=== PATIENT | male | born 1970 | race Caucasian/White ===

== ENCOUNTER 2021-11-16 15:32 | Inpatient (IN) | payer OTHER ==
[~2021-11-16] VITALS: Ht 167.6 cm; Wt 94.8 kg
[2021-11-16 17:49] LABS: EOSINOPHILS % 3.2 % (0.0-5.0); LYMPHOCYTES % 10.2 % (20.0-50.0); MEAN CORPUSCULAR HEMOGLOBIN 25.5 pg (28.0-32.0); MEAN CORPUSCULAR VOLUME 80.2 fL (80.0-94.0); MEAN PLATELET VOLUME 8.4 fl (7.4-10.4); NEUTROPHILS % 79.6 % (40.0-76.0); PLATELET 205 x1000/uL (130-400); RED BLOOD CELL COUNT 2.52 mill/uL (4.7-6.1); RED CELL DISTRIBUTION WIDTH 18.6 % (11.6-14.6)
[2021-11-16 17:57] LABS: HEMATOCRIT. 20.2 % (42.0-52.0); HEMOGLOBIN. 6.4 g/dL (14.0-18.0)
[2021-11-16 18:00] LABS: CHLORIDE 111 mEq/L (98-107)
[2021-11-16] MEDS ORDERED: FUROSEMIDE 40MG/4ML VIAL IVP NR (19:20)
[2021-11-16] MEDS: LORAZEPAM 1MG TABLET PO NR (22:31)
[2021-11-17] MEDS: ZOLPIDEM TARTRATE 5MG TABLET PO SCH ×2 (00:28→21:02)
[2021-11-17 00:47] VITALS: BP 89/47
[2021-11-17] MEDS ORDERED: APIX5TAB MT (03:55)
[2021-11-17 04:00] VITALS: BP 95/58
[2021-11-17] MEDS: LORAZEPAM 1MG TABLET PO NR (04:09)
[2021-11-17] MEDS ORDERED: PANTOPRAZOLE 40MG DR TABLET PO SCH (07:20)
[2021-11-17 07:52] LABS: BASOPHILS % 1.3 % (0.0-2.0); EOSINOPHILS % 3.7 % (0.0-5.0); LYMPHOCYTES % 11.7 % (20.0-50.0); MEAN CORPUSCULAR HEMOGLOBIN 25.6 pg (28.0-32.0); MEAN PLATELET VOLUME 8.7 fl (7.4-10.4); MONOCYTES % 7.8 % (2.0-8.0); NEUTROPHILS % 75.5 % (40.0-76.0); PLATELET 165 x1000/uL (130-400); RED BLOOD CELL COUNT 2.25 mill/uL (4.7-6.1); RED CELL DISTRIBUTION WIDTH 18.2 % (11.6-14.6)
[2021-11-17 08:00] VITALS: BP 107/54
[2021-11-17 08:00] LABS: HEMOGLOBIN. 5.8 g/dL (14.0-18.0)
[2021-11-17] MEDS: IRON SUCROSE COMPLEX 100 MG/5 ML ML IV SCH (09:50)
[2021-11-17] MEDS: FUROSEMIDE 40MG/4ML VIAL IVP SCH ×2 (09:50→18:42)
[2021-11-17 12:00] VITALS: BP 112/58
[2021-11-17 16:00] VITALS: BP 110/59
[2021-11-17 18:33] LABS: INR 1.3; PROTHROMBIN TIME 13.5 sec (9.6-11.0)
[2021-11-17] MEDS: PANTOPRAZOLE SODIUM 40 MG/VIAL IV SCH (18:42)
[2021-11-17 18:48] LABS: TOTAL IRON BINDING CAPACITY 319 ug/dL (250-450)
[2021-11-17 19:16] LABS: FOLIC ACID (FOLATE) SERUM 8.7 ng/mL (>5.38)
[2021-11-17 20:00] VITALS: BP 98/49
[2021-11-18] VITALS (10 sets, daily range): BP systolic 95–118; BP diastolic 56–76
[2021-11-18] MEDS: PANTOPRAZOLE SODIUM 40 MG/VIAL IV SCH ×2 (05:00→17:35)
[2021-11-18] MEDS: IRON SUCROSE COMPLEX 100 MG/5 ML ML IV SCH (09:00)
[2021-11-18] MEDS: FUROSEMIDE 40MG/4ML VIAL IVP SCH ×2 (09:00→17:35)
[2021-11-18 11:56] LABS: BASOPHILS % 1.1 % (0.0-2.0); EOSINOPHILS % 4.6 % (0.0-5.0); HEMATOCRIT. 28.1 % (42.0-52.0); HEMOGLOBIN. 9.2 g/dL (14.0-18.0); LYMPHOCYTES % 10.1 % (20.0-50.0); MEAN CORPUSCULAR HEMOGLOBIN 26.1 pg (28.0-32.0); MEAN CORPUSCULAR VOLUME 79.9 fL (80.0-94.0); MEAN PLATELET VOLUME 9.1 fl (7.4-10.4); NEUTROPHILS % 77.2 % (40.0-76.0); PLATELET 186 x1000/uL (130-400); RED BLOOD CELL COUNT 3.51 mill/uL (4.7-6.1)
[2021-11-18 13:24] LABS: INR 1.3; PROTHROMBIN TIME 13.8 sec (9.6-11.0)
[2021-11-18] MEDS: SODIUM CHLORIDE 0.9% 1,000 ML IV SCH (17:00)
[2021-11-18] MEDS: ZOLPIDEM TARTRATE 5MG TABLET PO SCH (21:52)
[2021-11-19] VITALS (11 sets, daily range): BP systolic 97–132; BP diastolic 48–66
[2021-11-19] MEDS: PANTOPRAZOLE SODIUM 40 MG/VIAL IV SCH ×2 (05:11→17:21)
[2021-11-19] MEDS: FUROSEMIDE 40MG/4ML VIAL IVP SCH ×2 (07:10→17:21)
[2021-11-19] MEDS: IRON SUCROSE COMPLEX 100 MG/5 ML ML IV SCH (08:50)
[2021-11-19 10:08] LABS: BASOPHILS % 1.3 % (0.0-2.0); EOSINOPHILS % 5.2 % (0.0-5.0); HEMATOCRIT. 28.5 % (42.0-52.0); HEMOGLOBIN. 9.3 g/dL (14.0-18.0); LYMPHOCYTES % 12.8 % (20.0-50.0); MEAN CORPUSCULAR VOLUME 79.3 fL (80.0-94.0); MEAN PLATELET VOLUME 8.2 fl (7.4-10.4); MONOCYTES % 8.7 % (2.0-8.0); PLATELET 145 x1000/uL (130-400); RED BLOOD CELL COUNT 3.59 mill/uL (4.7-6.1); RED CELL DISTRIBUTION WIDTH 17.5 % (11.6-14.6)
[2021-11-19] MEDS ORDERED: CEFAZOLIN 1000MG PREMIX 50 ML IV ONE (10:50)
[2021-11-19] MEDS ORDERED: CEFAZOLIN 1000MG PREMIX 50 ML IV NR (11:00)
[2021-11-19] MEDS ORDERED: POLYETHYLENE GLYCOL-ELECTROLYTE 4000ML PO NR (12:00)
[2021-11-19] MEDS: SODIUM CHLORIDE 0.9% 1,000 ML IV SCH (12:17)
[2021-11-19] MEDS ORDERED: LIDOCAINE HCL/PF 1% 10 MG/ML 5ML VIAL ONE ×2 (12:52→12:53)
[2021-11-19] MEDS ORDERED: IOHEXOL-300 100 ML BOTTLE ONE (12:54)
[2021-11-19] MEDS: METOCLOPRAMIDE HCL 5MG TABLET PO SCH ×3 (14:51→21:42)
[2021-11-19 19:11] LABS: CLARITY URINE CLEAR (CLEAR); COLOR URINE YELLOW (YELLOW); KETONES URINE NEGATIVE (NEGATIVE); LEUKOCYTE ESTERASE URINE NEGATIVE (NEGATIVE); NITRITE URINE NEGATIVE (NEGATIVE); OCCULT BLOOD URINE NEGATIVE (NEGATIVE); PH URINE 5.5 (4.5-8.0); PROTEIN URINE NEGATIVE (NEGATIVE); SPECIFIC GRAVITY URINE 1.022 (1.005-1.030); UROBILINOGEN URINE 0.2 E.U./dL (0.2-1.0)
[2021-11-19] MEDS: ZOLPIDEM TARTRATE 5MG TABLET PO SCH (21:42)
[2021-11-19] MEDS: DIPHENHYDRAMINE 50MG CAPSULE PO PRN (23:54)
[2021-11-20 03:34] VITALS: BP 110/52
[2021-11-20] MEDS: PANTOPRAZOLE SODIUM 40 MG/VIAL IV SCH ×2 (04:41→18:13)
[2021-11-20] MEDS: METOCLOPRAMIDE HCL 5MG TABLET PO SCH ×3 (06:30→18:13)
[2021-11-20] MEDS: FUROSEMIDE 40MG/4ML VIAL IVP SCH ×2 (06:30→18:13)
[2021-11-20 06:35] LABS: INR 1.3; PROTHROMBIN TIME 13.6 sec (9.6-11.0)
[2021-11-20 06:37] LABS: BASOPHILS % 1.6 % (0.0-2.0); EOSINOPHILS % 4.5 % (0.0-5.0); HEMOGLOBIN. 8.9 g/dL (14.0-18.0); LYMPHOCYTES % 16.2 % (20.0-50.0); MEAN CORPUSCULAR VOLUME 79.2 fL (80.0-94.0); MEAN PLATELET VOLUME 8.5 fl (7.4-10.4); MONOCYTES % 11.9 % (2.0-8.0); NEUTROPHILS % 65.8 % (40.0-76.0); PLATELET 101 x1000/uL (130-400); RED BLOOD CELL COUNT 3.28 mill/uL (4.7-6.1); RED CELL DISTRIBUTION WIDTH 17.8 % (11.6-14.6)
[2021-11-20 08:00] VITALS: BP 91/41
[2021-11-20] MEDS: SODIUM CHLORIDE 0.9% 1,000 ML IV SCH (10:25)
[2021-11-20 12:00] VITALS: BP 124/62
[2021-11-20 13:06] LABS: A/G RATIO 0.9 (0.7-1.7); ALBUMIN 3.6 g/dL (2.9-4.4); ALPHA-1-GLOBULIN 0.4 g/dL (0.0-0.4); ALPHA-2-GLOBULIN 0.9 g/dL (0.4-1.0); BETA GLOBULIN 1.2 g/dL (0.7-1.3); GAMMA GLOBULINS 1.2 g/dL (0.4-1.8); GLOBULIN TOTAL 3.8 g/dL (2.2-3.9); M-SPIKE Not Observed g/dL (Not Observed); TOTAL PROTEIN SERUM 7.4 g/dL (6.0-8.5)
[2021-11-20 16:00] VITALS: BP 113/59
[2021-11-20] MEDS ORDERED: PROPOFOL 200MG/20ML VIAL IV ONE ×2 (16:06→16:26)
[2021-11-20] MEDS ORDERED: MEPERIDINE HCL/PF 25MG/ML CPJ IV PRN (17:00)
[2021-11-20] MEDS ORDERED: ONDANSETRON HCL 4MG/2ML INJ IV PRN (17:00)
[2021-11-20 20:00] VITALS: BP 112/60
[2021-11-20] MEDS: ZOLPIDEM TARTRATE 5MG TABLET PO SCH (20:35)
[2021-11-21] VITALS: BP 96/52
[2021-11-21 04:00] VITALS: BP 113/77
[2021-11-21] MEDS: DIPHENHYDRAMINE 50MG CAPSULE PO PRN (04:26)
[2021-11-21] MEDS: PANTOPRAZOLE SODIUM 40 MG/VIAL IV SCH (04:27)
[2021-11-21] MEDS: FUROSEMIDE 40MG/4ML VIAL IVP SCH (06:26)
[2021-11-21 08:00] VITALS: BP 108/67
[2021-11-23 08:09] LABS: ANTI-NUCLEAR ANTIBODIES DIRECT Positive (Negative)
== END 2021-11-21 11:25 | disposition left against medical advice (07) | DRG 241 ==
LOC: ER 15:32 → 6WST 20:53 → EDBEDREQ 21:42 → EDBEDREQTM 21:42 → ENRESERV 22:41
PROVIDERS: ADMIT Internal Medicine; ATTEND Internal Medicine
PROC: 30233N1 Transfusion of Nonautologous Red Blood Cells into Peripheral Vein, Percutaneous Approach (ICD-10-PCS; 2021-11-18)
PROC: 06H033Z Insertion of Infusion Device into Inferior Vena Cava, Percutaneous Approach (ICD-10-PCS; 2021-11-19)
PROC: 0DB78ZX Excision of Stomach, Pylorus, Via Natural or Artificial Opening Endoscopic, Diagnostic (ICD-10-PCS; principal; 2021-11-20)
PROC: 0DJD8ZZ Inspection of Lower Intestinal Tract, Via Natural or Artificial Opening Endoscopic (ICD-10-PCS; 2021-11-20)
PROC: 06H03DZ Insertion of Intraluminal Device into Inferior Vena Cava, Percutaneous Approach (ICD-10-PCS; 2021-11-20)
DX: K29.71 Gastritis, unspecified, with bleeding (principal); I26.99 Other pulmonary embolism without acute cor pulmonale; I50.43 Acute on chronic combined systolic (congestive) and diastolic (congestive) heart failure; N17.9 Acute kidney failure, unspecified; E44.1 Mild protein-calorie malnutrition; I82.432 Acute embolism and thrombosis of left popliteal vein; I82.412 Acute embolism and thrombosis of left femoral vein; J90 Pleural effusion, not elsewhere classified; E87.8 Other disorders of electrolyte and fluid balance, not elsewhere classified; I13.0 Hypertensive heart and chronic kidney disease with heart failure and stage 1 through stage 4 chronic kidney disease, or unspecified chronic kidney disease; K64.8 Other hemorrhoids; E66.9 Obesity, unspecified; D64.9 Anemia, unspecified; E78.5 Hyperlipidemia, unspecified; N18.9 Chronic kidney disease, unspecified; R16.2 Hepatomegaly with splenomegaly, not elsewhere classified; Z20.822 Contact with and (suspected) exposure to COVID-19; F17.210 Nicotine dependence, cigarettes, uncomplicated; Z68.33 Body mass index [BMI] 33.0-33.9, adult; Z79.01 Long term (current) use of anticoagulants
CPT/HCPCS: 36415; 37191; 71045; 76700; 78582; 80048; 80053; 81003; 82550; 82607; 82728; 82746; 83540; 83550; 83880; 84155; 84165; 84484; 85025; 85044; 85379; 85384; 86038; 86160; 86850; 86870; 86900; 86920; 86945; 87426; 88305; 88312; 88313; 93005; 93306; 93970; 99291; A9558; C1769; C1880; C9113; J0690; J1940; J2704; J3490; J7030; J8597; P9016; Q0163; Q9967

== ENCOUNTER 2022-01-26 13:35 | Inpatient (IN) | payer MEDICAID, OTHER ==
[~2022-01-26] VITALS: Ht 320 cm; Wt 74.8 kg
[~2022-01-26 13:35] MED LIST: APIX5TAB MT
[2022-01-26] MEDS ORDERED: ALBUTEROL 6.7GM HFA INHALER ORI ONE (16:30)
[2022-01-26 17:15] LABS: EOSINOPHILS % 1.5 % (0.0-5.0); LYMPHOCYTES % 8.6 % (20.0-50.0); MEAN CORPUSCULAR VOLUME 81.5 fL (80.0-94.0); MEAN PLATELET VOLUME 8.8 fl (7.4-10.4); MONOCYTES % 6.1 % (2.0-8.0); NEUTROPHILS % 82.8 % (40.0-76.0); PLATELET 151 x1000/uL (130-400); RED BLOOD CELL COUNT 2.67 mill/uL (4.7-6.1); RED CELL DISTRIBUTION WIDTH 18.7 % (11.6-14.6)
[2022-01-26 17:22] LABS: HEMATOCRIT. 21.8 % (42.0-52.0)
[2022-01-26 17:24] LABS: CHLORIDE 111 mEq/L (98-107)
[2022-01-26 17:38] LABS: ETHANOL BLOOD < 10 mg/dL
[2022-01-26] MEDS ORDERED: FUROSEMIDE 40MG/4ML VIAL IVP NR (18:15)
[2022-01-26 19:20] LABS: TOTAL IRON BINDING CAPACITY 288 ug/dL (250-450)
[2022-01-26] MEDS ORDERED: IPRATROPIUM/ALBUTEROL 0.5-3(2.5)MG/3ML NEB HHN PRN (20:00)
[2022-01-26] MEDS ORDERED: CEFTRIAXONE 1 G PREMIX 50 ML IV SCH (20:00)
[2022-01-26] MEDS ORDERED: DIPHENHYDRAMINE 50MG/ML VIAL IV PRN (20:00)
[2022-01-26] MEDS ORDERED: AZITHROMYCIN 500 MG in DEXT 5% WATER 250 ML IV SCH (20:00)
[2022-01-26] MEDS ORDERED: ACETAMINOPHEN 325MG TABLET PO PRN (20:00)
[2022-01-26] MEDS ORDERED: CLONIDINE 0.1MG TABLET PO PRN (20:00)
[2022-01-26] MEDS ORDERED: ONDANSETRON HCL 4MG/2ML INJ IV PRN (20:00)
[2022-01-26 20:17] LABS: *AMPHETAMINES SCREEN URINE NEGATIVE (NEGATIVE); *BARBITURATES SCREEN URINE NEGATIVE (NEGATIVE); *BENZODIAZEPINES SCREEN URINE NEGATIVE (NEGATIVE); *COCAINE SCREEN URINE NEGATIVE (NEGATIVE); CANNABINOID URINE SCREEN NEGATIVE (NEGATIVE); METHADONE URINE SCREEN NEGATIVE (NEGATIVE); OPIATES URINE SCREEN NEGATIVE (NEGATIVE); PHENCYCLIDINE URINE SCREEN NEGATIVE (NEGATIVE)
[2022-01-26 20:44] LABS: FOLIC ACID (FOLATE) SERUM 8.5 ng/mL (>5.38)
[2022-01-27 02:19] VITALS: BP 104/49
[2022-01-27 07:42] LABS: HEMATOCRIT. 23.1 % (42.0-52.0); HEMOGLOBIN. 7.4 g/dL (14.0-18.0); LYMPHOCYTES % 7.8 % (20.0-50.0); MEAN PLATELET VOLUME 8.9 fl (7.4-10.4); MONOCYTES % 7.5 % (2.0-8.0); NEUTROPHILS % 81.7 % (40.0-76.0); PLATELET 130 x1000/uL (130-400); RED BLOOD CELL COUNT 2.85 mill/uL (4.7-6.1)
[2022-01-27 07:45] LABS: CHLORIDE 109 mEq/L (98-107)
[2022-01-27 08:00] VITALS: BP 99/43
[2022-01-27 12:00] VITALS: BP 98/46
[2022-01-27 16:00] VITALS: BP 109/54
[2022-01-27] MEDS: SUCRALFATE 1G TABLET PO SCH (18:07)
[2022-01-27] MEDS: PANTOPRAZOLE SODIUM 40 MG/VIAL IV SCH (18:08)
[2022-01-27 18:34] LABS: INR 1.3
[2022-01-27] MEDS ORDERED: AZITHROMYCIN 500 MG in DEXT 5% WATER 250 ML IV SCH (20:00)
[2022-01-27 22:55] VITALS: BP 93/51
[2022-01-27 23:10] VITALS: BP 99/50
[2022-01-28] VITALS (9 sets, daily range): BP systolic 87–108; BP diastolic 41–66
[2022-01-28] MEDS: SUCRALFATE 1G TABLET PO SCH ×5 (00:13→23:18)
[2022-01-28] MEDS: CEFTRIAXONE 1,000 MG in DEXTROSE 5% WATER 50 ML IV SCH ×2 (06:31→21:40)
[2022-01-28 07:16] LABS: BASOPHILS % 1.1 % (0.0-2.0); EOSINOPHILS % 3.6 % (0.0-5.0); HEMATOCRIT. 25.1 % (42.0-52.0); HEMOGLOBIN. 8.3 g/dL (14.0-18.0); LYMPHOCYTES % 12.2 % (20.0-50.0); MEAN CORPUSCULAR HEMOGLOBIN 26.6 pg (28.0-32.0); MEAN CORPUSCULAR VOLUME 80.6 fL (80.0-94.0); MEAN PLATELET VOLUME 9.1 fl (7.4-10.4); MONOCYTES % 9.3 % (2.0-8.0); NEUTROPHILS % 73.8 % (40.0-76.0); PLATELET 96 x1000/uL (130-400); RED BLOOD CELL COUNT 3.12 mill/uL (4.7-6.1); RED CELL DISTRIBUTION WIDTH 18.5 % (11.6-14.6)
[2022-01-28 07:46] LABS: HEPATITIS B SURFACE ANTIGEN NEGATIVE
[2022-01-28] MEDS: PANTOPRAZOLE SODIUM 40 MG/VIAL IV SCH ×2 (09:58→17:17)
[2022-01-28] MEDS ORDERED: LACTULOSE 20G/30ML UDC PO NR (11:45)
[2022-01-28] MEDS: AZITHROMYCIN 500 MG TABLET PO SCH (13:12)
[2022-01-28] MEDS: FERROUS SULFATE 325MG TABLET PO SCH (17:17)
[2022-01-29] VITALS: BP 100/58
[2022-01-29 04:00] VITALS: BP 102/58
[2022-01-29 05:34] LABS: BASOPHILS % 1.3 % (0.0-2.0); EOSINOPHILS % 4.2 % (0.0-5.0); HEMATOCRIT. 25.5 % (42.0-52.0); HEMOGLOBIN. 8.4 g/dL (14.0-18.0); LYMPHOCYTES % 13.3 % (20.0-50.0); MEAN CORPUSCULAR HEMOGLOBIN 26.4 pg (28.0-32.0); MEAN CORPUSCULAR VOLUME 80.2 fL (80.0-94.0); MONOCYTES % 9.2 % (2.0-8.0); PLATELET 95 x1000/uL (130-400); RED BLOOD CELL COUNT 3.18 mill/uL (4.7-6.1); RED CELL DISTRIBUTION WIDTH 18.2 % (11.6-14.6)
[2022-01-29] MEDS: SUCRALFATE 1G TABLET PO SCH ×2 (06:21→12:55)
[2022-01-29 08:00] VITALS: BP 111/54
[2022-01-29] MEDS: AZITHROMYCIN 500 MG TABLET PO SCH (08:21)
[2022-01-29] MEDS: FERROUS SULFATE 325MG TABLET PO SCH (08:21)
[2022-01-29] MEDS: PANTOPRAZOLE SODIUM 40 MG/VIAL IV SCH (08:22)
[2022-01-29] MEDS ORDERED: ASCORBIC ACID 500 MG TABLET PO SCH (09:00)
[2022-01-29 12:00] VITALS: BP 93/45
[2022-01-29] MEDS ORDERED: ASCO500T20 PO (12:47)
[2022-01-29] MEDS ORDERED: FERR-63 PO (12:47)
[2022-01-29] MEDS ORDERED: SUCR1TAB30 MT (12:47)
[2022-01-29] MEDS ORDERED: DOCU-150 MT (12:47)
[2022-01-29] MEDS ORDERED: PANT40TA51 MT (12:47)
[2022-01-29 14:46] VITALS: BP 131/70
[2022-01-29 15:04] VITALS: BP 106/59
[2022-01-29 15:41] LABS: CLARITY URINE CLEAR (CLEAR); COLOR URINE YELLOW (YELLOW); KETONES URINE NEGATIVE (NEGATIVE); LEUKOCYTE ESTERASE URINE NEGATIVE (NEGATIVE); NITRITE URINE NEGATIVE (NEGATIVE); OCCULT BLOOD URINE NEGATIVE (NEGATIVE); PH URINE 5.5 (4.5-8.0); PROTEIN URINE TRACE (NEGATIVE); SPECIFIC GRAVITY URINE 1.014 (1.005-1.030); UROBILINOGEN URINE 0.2 E.U./dL (0.2-1.0)
== END 2022-01-29 15:45 | disposition home or self-care (01) | DRG 253 ==
LOC: ER 13:57 → 7WST 19:23 → ENRESERV 21:13
PROVIDERS: ADMIT Internal Medicine; ATTEND Internal Medicine
PROC: 30233N1 Transfusion of Nonautologous Red Blood Cells into Peripheral Vein, Percutaneous Approach (ICD-10-PCS; principal; 2022-01-26)
DX: K92.2 Gastrointestinal hemorrhage, unspecified (principal); N17.9 Acute kidney failure, unspecified; E46 Unspecified protein-calorie malnutrition; I82.411 Acute embolism and thrombosis of right femoral vein; J90 Pleural effusion, not elsewhere classified; D50.9 Iron deficiency anemia, unspecified; F10.11 Alcohol abuse, in remission; R16.2 Hepatomegaly with splenomegaly, not elsewhere classified; R17 Unspecified jaundice; F17.200 Nicotine dependence, unspecified, uncomplicated; I12.9 Hypertensive chronic kidney disease with stage 1 through stage 4 chronic kidney disease, or unspecified chronic kidney disease; Z20.822 Contact with and (suspected) exposure to COVID-19; N18.9 Chronic kidney disease, unspecified; T45.515A Adverse effect of anticoagulants, initial encounter; Z79.899 Other long term (current) drug therapy; Z68.1 Body mass index [BMI] 19.9 or less, adult; Z86.718 Personal history of other venous thrombosis and embolism; Y92.89 Other specified places as the place of occurrence of the external cause; I82.431 Acute embolism and thrombosis of right popliteal vein; Z95.828 Presence of other vascular implants and grafts
CPT/HCPCS: 36415; 71045; 76770; 80048; 80053; 80076; 80305; 80320; 81003; 82248; 82607; 82728; 82746; 83540; 83550; 83880; 84484; 85025; 85044; 86705; 86709; 86803; 86850; 86870; 86900; 86920; 87340; 87426; 93005; 93970; 99291; C9113; C9803; J0456; J0696; J1940; J7060; P9016; G0480

== ENCOUNTER 2022-02-27 12:29 | Inpatient (IN) | payer OTHER ==
[~2022-02-27] VITALS: Ht 165.1 cm; Wt 49.0 kg
[~2022-02-27 12:29] MED LIST changes: -APIX5TAB MT; +ASCO500T20 PO; +DOCU-150 MT; +FERR-63 PO; +PANT40TA51 MT; +SUCR1TAB30 MT
[2022-02-27 16:23] LABS: BASOPHILS % 1.3 % (0.0-2.0); EOSINOPHILS % 3.7 % (0.0-5.0); HEMATOCRIT. 22.3 % (42.0-52.0); HEMOGLOBIN. 7.3 g/dL (14.0-18.0); LYMPHOCYTES % 14.8 % (20.0-50.0); MEAN CORPUSCULAR HEMOGLOBIN 26.4 pg (28.0-32.0); MEAN CORPUSCULAR VOLUME 80.6 fL (80.0-94.0); MEAN PLATELET VOLUME 8.7 fl (7.4-10.4); MONOCYTES % 7.7 % (2.0-8.0); NEUTROPHILS % 72.5 % (40.0-76.0); PLATELET 140 x1000/uL (130-400); RED BLOOD CELL COUNT 2.76 mill/uL (4.7-6.1); RED CELL DISTRIBUTION WIDTH 17.8 % (11.6-14.6)
[2022-02-27] MEDS ORDERED: IOHEXOL-350 100 ML BOTTLE ONE (19:46)
[2022-02-27] MEDS ORDERED: AZITHROMYCIN 500MG/250ML 250 ML IV ONE (23:30)
[2022-02-27] MEDS ORDERED: CEFTRIAXONE 1 G PREMIX 50 ML IV ONE (23:30)
[2022-02-28 01:00] VITALS: BP 98/65
[2022-02-28 04:00] VITALS: BP 100/52
[2022-02-28] MEDS ORDERED: DIPHENHYDRAMINE 50MG/ML VIAL IV PRN (07:15)
[2022-02-28 08:00] VITALS: BP 126/66
[2022-02-28] MEDS ORDERED: FAMOTIDINE 20MG TABLET PO SCH (09:00)
[2022-02-28] MEDS ORDERED: ENOXAPARIN 60MG/0.6ML SYR SUBCUT SCH (09:00)
[2022-02-28 12:00] VITALS: BP 116/61
[2022-02-28 12:40] LABS: BASOPHILS % 1.1 % (0.0-2.0); EOSINOPHILS % 3.2 % (0.0-5.0); MEAN CORPUSCULAR HEMOGLOBIN 26.1 pg (28.0-32.0); MEAN PLATELET VOLUME 8.9 fl (7.4-10.4); MONOCYTES % 6.1 % (2.0-8.0); NEUTROPHILS % 81.6 % (40.0-76.0); PLATELET 143 x1000/uL (130-400); RED BLOOD CELL COUNT 2.69 mill/uL (4.7-6.1); RED CELL DISTRIBUTION WIDTH 17.7 % (11.6-14.6)
[2022-02-28] MEDS ORDERED: HYDROCODONE/ACETAMINOPHEN 5/325MG TABLET PO PRN (14:15)
[2022-02-28] MEDS ORDERED: NALOXONE HCL 0.4MG/ML VIAL IV PRN (14:30)
[2022-02-28 16:00] VITALS: BP 125/59
[2022-02-28 20:00] VITALS: BP 116/52
== END 2022-02-28 22:07 | disposition left against medical advice (07) | DRG 134 ==
LOC: ER 12:29 → 8WST 22:01 → ENRESERV 22:37
PROVIDERS: ADMIT Internal Medicine; ATTEND Internal Medicine
DX: I26.93 Single subsegmental thrombotic pulmonary embolism without acute cor pulmonale (principal); N17.9 Acute kidney failure, unspecified; D63.1 Anemia in chronic kidney disease; I82.411 Acute embolism and thrombosis of right femoral vein; I82.431 Acute embolism and thrombosis of right popliteal vein; Z20.822 Contact with and (suspected) exposure to COVID-19; J45.909 Unspecified asthma, uncomplicated; N18.9 Chronic kidney disease, unspecified; Z82.49 Family history of ischemic heart disease and other diseases of the circulatory system; Z95.828 Presence of other vascular implants and grafts; Z53.29 Procedure and treatment not carried out because of patient's decision for other reasons
CPT/HCPCS: 36415; 71275; 80048; 80061; 83540; 83550; 85025; 85379; 86850; 86900; 87426; 93971; 99291; C9803; J0456; J0696; J1650; Q9967

== ENCOUNTER 2022-03-12 18:04 | Inpatient (IN) | payer OTHER ==
[~2022-03-12] VITALS: Ht 167.6 cm; Wt 83.9 kg
[2022-03-13 02:44] LABS: EOSINOPHILS % 2.3 % (0.0-5.0); HEMATOCRIT. 24.6 % (42.0-52.0); LYMPHOCYTES % 8.3 % (20.0-50.0); MEAN CORPUSCULAR HEMOGLOBIN 26.3 pg (28.0-32.0); MEAN CORPUSCULAR VOLUME 81.3 fL (80.0-94.0); MEAN PLATELET VOLUME 8.3 fl (7.4-10.4); MONOCYTES % 7.1 % (2.0-8.0); NEUTROPHILS % 81.3 % (40.0-76.0); PLATELET 125 x1000/uL (130-400); RED BLOOD CELL COUNT 3.03 mill/uL (4.7-6.1); RED CELL DISTRIBUTION WIDTH 17.6 % (11.6-14.6)
[2022-03-13 02:52] LABS: CHLORIDE 110 mEq/L (98-107)
[2022-03-13 02:56] LABS: INR 1.2
[2022-03-13] MEDS ORDERED: APIXABAN 5 MG TABLET PO NR (03:30)
[2022-03-13 09:00] VITALS: BP 114/54
[2022-03-13] MEDS ORDERED: ONDANSETRON HCL 4MG/2ML INJ IV PRN (10:45)
[2022-03-13] MEDS ORDERED: CLONIDINE 0.1MG TABLET PO PRN (10:45)
[2022-03-13] MEDS ORDERED: ZOLPIDEM TARTRATE 5MG TABLET PO PRN (10:45)
[2022-03-13] MEDS ORDERED: GUAIFENESIN 200MG/10ML SUGAR FREE UDC PO PRN (10:45)
[2022-03-13] MEDS ORDERED: ACETAMINOPHEN 325MG TABLET PO PRN (10:45)
[2022-03-13] MEDS ORDERED: MAGNESIUM/ALUMINUM HYDROXIDE/SIMETHICONE 30ML UDC PO PRN (10:45)
[2022-03-13 12:00] VITALS: BP 106/58
[2022-03-13] MEDS ORDERED: APIXABAN 5 MG TABLET PO SCH (12:00)
[2022-03-13] MEDS: IRON SUCROSE COMPLEX 100 MG/5 ML ML IV SCH (13:03)
[2022-03-13] MEDS: SODIUM CHLORIDE 0.9% INJ 3ML FLUSH IVF SCH ×2 (13:03→21:02)
[2022-03-13] MEDS ORDERED: *PATIENT'S OWN MEDICATION STORAGE XX SCH (14:30)
[2022-03-13 16:00] VITALS: BP 88/42
[2022-03-13] MEDS: DIPHENHYDRAMINE 50MG/ML VIAL IV PRN ×2 (16:31→21:08)
[2022-03-13] MEDS: PANTOPRAZOLE 40MG DR TABLET PO SCH (21:02)
[2022-03-14] VITALS (10 sets, daily range): BP systolic 90–116; BP diastolic 38–66
[2022-03-14] MEDS: SODIUM CHLORIDE 0.9% INJ 3ML FLUSH IVF SCH ×2 (05:50→14:00)
[2022-03-14] MEDS: ACETAMINOPHEN 325MG TABLET PO PRN ×2 (06:03→16:51)
[2022-03-14 08:49] LABS: BASOPHILS % 0.7 % (0.0-2.0); EOSINOPHILS % 1.9 % (0.0-5.0); HEMATOCRIT. 24.6 % (42.0-52.0); LYMPHOCYTES % 7.1 % (20.0-50.0); MEAN CORPUSCULAR HEMOGLOBIN 26.7 pg (28.0-32.0); MEAN CORPUSCULAR VOLUME 82.4 fL (80.0-94.0); MEAN PLATELET VOLUME 8.7 fl (7.4-10.4); MONOCYTES % 6.4 % (2.0-8.0); NEUTROPHILS % 83.9 % (40.0-76.0); PLATELET 119 x1000/uL (130-400); RED BLOOD CELL COUNT 2.99 mill/uL (4.7-6.1); RED CELL DISTRIBUTION WIDTH 17.1 % (11.6-14.6)
[2022-03-14] MEDS: PANTOPRAZOLE 40MG DR TABLET PO SCH (10:53)
[2022-03-14] MEDS ORDERED: KETOROLAC 15MG/ML VIAL IV SCH (13:30)
[2022-03-14] MEDS ORDERED: KETOROLAC 15MG/ML VIAL IV PRN (14:00)
[2022-03-14] MEDS: IRON SUCROSE COMPLEX 100 MG/5 ML ML IV SCH (14:17)
[2022-03-15] MEDS ORDERED: ASCORBIC ACID 500 MG TABLET PO SCH (09:00)
[2022-03-15] MEDS ORDERED: DOCUSATE SODIUM 100MG CAPSULE PO SCH (09:00)
[2022-03-15] MEDS ORDERED: SUCRALFATE 1G TABLET PO SCH (09:00)
[2022-03-15] MEDS ORDERED: FERROUS SULFATE 325MG TABLET PO SCH (09:00)
[2022-03-15] MEDS ORDERED: PANTOPRAZOLE 40MG DR TABLET PO SCH (09:00)
[2022-03-20] MEDS ORDERED: APIXABAN 5 MG TABLET PO SCH (09:00)
== END 2022-03-14 23:45 | disposition home or self-care (01) | DRG 197 ==
LOC: ER 18:04 → 6EST 03-13 00:51 → EDBEDREQ 03-13 03:13 → EDBEDREQTM 03-13 03:13 → ER 03-13 08:40
PROVIDERS: ADMIT Internal Medicine; ATTEND Internal Medicine
PROC: 30233N1 Transfusion of Nonautologous Red Blood Cells into Peripheral Vein, Percutaneous Approach (ICD-10-PCS; principal; 2022-03-14)
DX: I82.403 Acute embolism and thrombosis of unspecified deep veins of lower extremity, bilateral (principal); N17.9 Acute kidney failure, unspecified; D64.9 Anemia, unspecified; E61.1 Iron deficiency; N18.9 Chronic kidney disease, unspecified; E66.9 Obesity, unspecified; Z79.899 Other long term (current) drug therapy; Z68.29 Body mass index [BMI] 29.0-29.9, adult; Z79.01 Long term (current) use of anticoagulants; Z82.49 Family history of ischemic heart disease and other diseases of the circulatory system; Z86.718 Personal history of other venous thrombosis and embolism; Z95.828 Presence of other vascular implants and grafts
CPT/HCPCS: 36415; 80048; 80053; 85025; 86850; 86870; 86900; 86920; 93970; 99285; J1200; J1885; P9016

== ENCOUNTER 2023-01-22 15:05 | Emergency (ER) | payer MEDICAID, OTHER ==
[~2023-01-22] VITALS: Ht 167.6 cm; Wt 90.0 kg
[2023-01-22 15:37] VITALS: BP 135/57; RESP 20; TEMP 98.3; O2SAT 100
[2023-01-22 15:53] VITALS: PULSE 65
[2023-01-22] MEDS ORDERED: ACETAMINOPHEN 325MG TABLET PO ONE (19:15)
[2023-01-22] MEDS ORDERED: CEFTRIAXONE 1GM PREMIX 50 ML IV ONE (19:15)
[2023-01-22] MEDS ORDERED: VANCOMYCIN 1G PREMIX 200 ML IV ONE (19:15)
[2023-01-22 20:18] LABS: BASOPHILS % 0.9 % (0.0-2.0); EOSINOPHILS % 2.9 % (0.0-5.0); HEMATOCRIT. 29.1 % (42.0-52.0); HEMOGLOBIN. 9.8 g/dL (14.0-18.0); LYMPHOCYTES % 16.5 % (20.0-50.0); MEAN CORPUSCULAR HEMOGLOBIN 28.8 pg (28.0-32.0); MEAN CORPUSCULAR VOLUME 85.7 fL (80.0-94.0); NEUTROPHILS % 68.7 % (40.0-76.0); PLATELET 133 x1000/uL (130-400); RED CELL DISTRIBUTION WIDTH 17.4 % (11.6-14.6)
[2023-01-22 20:25] LABS: CHLORIDE 112 mEq/L (98-107)
[2023-01-22 20:26] LABS: INR 1.1; PROTHROMBIN TIME 11.9 sec (9.6-11.0)
[2023-01-22 20:33] LABS: ETHANOL BLOOD < 10 mg/dL (-10)
== END 2023-01-22 22:30 | disposition left against medical advice (07) ==
LOC: ER 15:05
DX: M79.605 Pain in left leg (principal); M79.604 Pain in right leg; Z53.21 Procedure and treatment not carried out due to patient leaving prior to being seen by health care provider; Z98.890 Other specified postprocedural states
CPT/HCPCS: 80053; 80320; 83605; 85025; 85610; 87040; 36415; 84145; 93970; 96368; 96365; 99285; J0696; J3370; Z7610 ×2; G0480

== ENCOUNTER 2023-05-26 17:09 | Emergency (ER) | payer MEDICAID, OTHER ==
[~2023-05-26] VITALS: Ht 172.7 cm; Wt 91.0 kg
[~2023-05-26 17:09] MED LIST changes: +APIX5TAB PO; +CHOL200074; +DAPA5TAB PO; +FURO-152 PO; +GABA800T97 PO; +METH-773 PO; -SUCR1TAB30 MT; +TOPUD PO
[2023-05-26 17:20] VITALS: O2SAT 98
[2023-05-26 18:52] VITALS: BP 140/61; PULSE 88; RESP 18; TEMP 98.3
== END 2023-05-26 18:53 | disposition home or self-care (01) ==
LOC: ER 17:09
DX: Z45.2 Encounter for adjustment and management of vascular access device (principal); R68.89 Other general symptoms and signs; D64.9 Anemia, unspecified; Z79.899 Other long term (current) drug therapy
CPT/HCPCS: 99281

== ENCOUNTER 2023-06-09 13:38 | Emergency (ER) | payer MEDICAID, OTHER ==
[~2023-06-09] VITALS: Ht 167.6 cm; Wt 91.0 kg
[2023-06-09 14:03] VITALS: BP 132/73; TEMP 98.1; O2SAT 99
[2023-06-09 14:05] VITALS: PULSE 83; RESP 16
== END 2023-06-09 18:16 | disposition home or self-care (01) ==
LOC: ER 14:58
DX: T85.698A Other mechanical complication of other specified internal prosthetic devices, implants and grafts, initial encounter (principal)
CPT/HCPCS: 99281

== ENCOUNTER 2023-06-10 09:02 | Emergency (ER) | payer MEDICAID, OTHER ==
[~2023-06-10] VITALS: Ht 172.7 cm; Wt 90.0 kg
[2023-06-10 09:08] VITALS: O2SAT 100
[2023-06-10] MEDS ORDERED: LIDOCAINE HCL 1% 10 MG/ML 10ML VIAL ONE (14:06)
[2023-06-10] MEDS ORDERED: HYDROCODONE/ACETAMINOPHEN 5/325MG TABLET PO ONE (15:30)
[2023-06-10 16:14] VITALS: BP 128/66
[2023-06-10 16:15] VITALS: PULSE 70; RESP 20; TEMP 98.4
== END 2023-06-10 16:16 | disposition home or self-care (01) ==
LOC: ER 09:02
DX: Z95.9 Presence of cardiac and vascular implant and graft, unspecified (principal); D64.9 Anemia, unspecified; Z98.890 Other specified postprocedural states; Z79.899 Other long term (current) drug therapy
CPT/HCPCS: 71045; 36573; 99283; J3490; Z7610; C1725

== ENCOUNTER 2023-08-13 14:51 | Emergency (ER) | payer MEDICAID, OTHER ==
[~2023-08-13] VITALS: Ht 172.7 cm; Wt 76.0 kg
[2023-08-13 14:59] VITALS: O2SAT 93
[2023-08-13 16:11] LABS: HEMATOCRIT. 23.3 % (42.0-52.0); HEMOGLOBIN. 7.6 g/dL (14.0-18.0); MEAN CORPUSCULAR HEMOGLOBIN 27.8 pg (28.0-32.0); MEAN CORPUSCULAR HGB CONC 32.5 g/dL (31.0-37.0); MEAN CORPUSCULAR VOLUME 85.6 fL (80.0-94.0); MEAN PLATELET VOLUME 9.1 fl (7.4-10.4); PLATELET 212 x1000/uL (130-400); RED BLOOD CELL COUNT 2.72 mill/uL (4.7-6.1); RED CELL DISTRIBUTION WIDTH 16.8 % (11.6-14.6)
[2023-08-13 16:15] LABS: DIFFERENTIAL COMMENT 1
[2023-08-13 16:22] LABS: D-DIMER 1.2 mg/L FEU (<0.50); INR 1.1; PROTHROMBIN TIME 12.4 sec (9.6-11.0)
[2023-08-13 16:30] LABS: ANISOCYTOSIS 1+; PLATELET ESTIMATE NORMAL
[2023-08-13 16:41] LABS: ALANINE AMINOTRANSFERASE < 7 IU/L (10-49); ALBUMIN 3.8 g/dL (3.2-4.8); ASPARTATE AMINOTRANSFERASE 15 IU/L (<34); BILIRUBIN TOTAL 1.1 mg/dL (0.1-1.0); CALCIUM 8.6 mg/dL (8.7-10.4); CARBON DIOXIDE 21 mEq/L (21-32); CHLORIDE 104 mEq/L (98-107); GLUCOSE 96 mg/dL (70-105); POTASSIUM 4.4 mEq/L (3.5-5.1); PROTEIN TOTAL 6.7 g/dL (6.0-8.3); SODIUM 135 mEq/L (136-145); TROPONIN I HIGH SENSITIVITY 11 ng/L (3.0-53); UREA NITROGEN BLOOD 17 mg/dL (9-23)
[2023-08-13 16:42] LABS: CREATININE 1.5 mg/dL (0.6-1.3)
[2023-08-13 21:00] VITALS: BP 133/74; PULSE 100; RESP 18; TEMP 97.9
[2023-08-13] MEDS ORDERED: IOHEXOL-350 100 ML BOTTLE ONE (23:25)
[2023-08-15] MEDS ORDERED: ASPI-1497 PO (09:29)
[2023-08-15] MEDS ORDERED: SODI650T PO ×2 (09:29→14:05)
[2023-08-15] MEDS ORDERED: ENOX40SY27 SQ (09:38)
[2023-08-15] MEDS ORDERED: ASPI-1406 PO (14:05)
[2023-08-15] MEDS ORDERED: CHOL2000 PO (14:05)
[2023-08-16] MEDS ORDERED: METO25TA6 PO (09:19)
== END 2023-08-13 21:25 | disposition home or self-care (01) ==
LOC: ER 14:51
DX: I26.99 Other pulmonary embolism without acute cor pulmonale (principal); D64.9 Anemia, unspecified; Z79.899 Other long term (current) drug therapy
CPT/HCPCS: 99285; 71275; 71045; 80053; 83880; 85025; 85379; 85610; 84484; 36415; 93005; Q9967